=== PATIENT | female | born 1990 | race Caucasian/White ===

== ENCOUNTER 2018-08-11 16:44 | Emergency (ER) | payer OTHER ==
[~2018-08-11] VITALS: Ht 152.4 cm; Wt 57.3 kg
[2018-08-11] MEDS ORDERED: PREN1TAB11 PO (16:51)
[2018-08-11] MEDS ORDERED: METOCLOPRAMIDE 10 MG TAB PO ONE (17:30)
[2018-08-11] MEDS ORDERED: REGL10TA6 PO (18:41)
[2018-08-11] MEDS ORDERED: MACR100C43 PO (18:41)
[2018-08-11] MEDS ORDERED: NITROFURANTOIN (MACROBID) 100 MG CAP PO ONE (18:45)
[2018-08-11 18:57] VITALS: BP 131/78
== END 2018-08-11 18:58 | disposition home or self-care (01) ==
LOC: M ED 16:44
DX: N39.0 Urinary tract infection, site not specified (principal); M54.5 Low back pain; F17.200 Nicotine dependence, unspecified, uncomplicated

== ENCOUNTER → 2019-01-24 | Outpatient (CLI) | payer OTHER ==
[~2019-01-24] MED LIST: MACR100C43 PO; PREN1TAB11 PO; REGL10TA6 PO
[2019-01-24 10:34] LABS: BASO # 0.1 10^3/uL (0.0-0.2); BASO % 0.7 % (0.0-1.0); EOS # 0.1 10^3/uL (0.0-0.50); EOS % 1.2 % (0.0-3.0); HEMATOCRIT 37.3 % (36.0-47.0); HEMOGLOBIN 12.5 g/dl (12.0-15.5); LYMPH # 1.5 10^3/uL (1.5-6.5); LYMPH % 19.2 % (24.0-44.0); MEAN CORPUSCULAR HEMOGLOBIN 31.1 pg (27.0-33.0); MEAN CORPUSCULAR HGB CONC 33.5 g/dl (32.0-36.5); MEAN CORPUSCULAR VOLUME 92.8 fl (80.0-96.0); MONO # 0.5 10^3/uL (0.0-0.8); MONO % 6.2 % (0.0-5.0); NEUTROPHILS # 5.8 10^3/uL (1.8-7.7); NEUTROPHILS % 72.1 % (36.0-66.0); PLATELET COUNT, AUTOMATED 218 10^3/uL (150-450); RED BLOOD COUNT 4.02 10^6/uL (4.00-5.40)
== END ==
LOC: M LAB 08:46
PROVIDERS: ATTEND Obstetrics & Gynecology Obstetrics
DX: Z34.82 Encounter for supervision of other normal pregnancy, second trimester (principal)